=== PATIENT | male | born 1950 | race Hispanic/Latino ===

== ENCOUNTER 2016-10-26 10:41 | Inpatient (IN) | payer MEDICAID ==
[2016-10-26] MEDS ORDERED: Oxycodone/Acetaminophen 5/325 mg Tab PO STA ×2 (11:43→19:16)
--- NOTE | 2016-10-26 11:46 | ED PDOC ---
Upper Extremity Pain/Injury Time Seen by Provider: 10/26/16 11:24 Chief Complaint (Nursing): Upper Extremity Problem/Injury Chief Complaint (Provider): Upper back pain History Per: Patient Additional Complaint(s): 66 yo male, denies any PMH, presents to ED with c.o pain to right shoulder blade that radiates to right chest for 6 months. states he uses lidocaine patches with no relief. Pt reports that his PMD gave him an rx for MRI of shoulder back in September; however, Pt did not have it done thus far. PMD: Dr. Wynne Past Medical History Reviewed: Nursing Documentation, Vital Signs Vital Signs: Last Vital Signs Temp 97.9 F 10/26/16 11:21 Pulse 88 10/26/16 11:21 Resp 21 10/26/16 11:21 BP 126/80 10/26/16 11:21 Pulse Ox 100 10/26/16 11:21 - Medical History PMH: No Chronic Diseases - Family History Family History: States: No Known Family Hx - Living Arrangements Living Arrangements: With Family - Social History Current smoker - smoking cessation education provided: Yes Alcohol: Social Drugs: Denies - Home Medications Home Medications: Ambulatory Orders Medication Instructions Recorded Alprazolam [Xanax] 2 mg PO TID PRN 10/26/16 Oxycodone HCl/Acetaminophen 1 tab PO Q6H PRN 10/26/16 [Percocet 10-325 mg Tablet] - Allergies Allergies/Adverse Reactions: Allergies Allergy/AdvReac Type Severity Reaction Status Date / Time No Known Allergies Allergy Verified 10/26/16 11:23 Physical Exam - Reviewed Nursing Documentation Reviewed: Yes Vital Signs Reviewed: Yes - Physical Exam Appears: Positive for: Well, Non-toxic, No Acute Distress Head Exam: Positive for: ATRAUMATIC, NORMAL INSPECTION, NORMOCEPHALIC Skin: Positive for: Normal Color, Warm, DRY Eye Exam: Positive for: EOMI, Normal appearance, PERRL ENT: Positive for: Normal ENT Inspection Neck: Positive for: Normal, Painless ROM Cardiovascular/Chest: Positive for: Regular Rate, Rhythm, Gallop Respiratory: Positive for: Decreased Breath Sounds (RUL), Other (tenderness over right scapula, no edema, no ecchymosis or edema). Negative for: Accessory Muscle Use, Crackles, Rales, Rhonchi Gastrointestinal/Abdominal: Positive for: Normal Exam, Bowel Sounds, Soft Back: Positive for: Normal Inspection Extremity: Positive for: Normal ROM, Tenderness (over right scapula) Neurologic/Psych: Positive for: Alert, Oriented - Laboratory Results Result Diagrams: 10/26/16 14:30 10/26/16 13:49 - ECG O2 Sat by Pulse Oximetry: 100 Medical Decision Making Medical Decision Making: Shoulder XR: NAD, as read by CLEMENTE CXR: Large mass noted to RUL, as read by CLEMENTE Pt educated on concerning findings and likely indication and demonstrated full understanding. Agred wo further workup and admission at this time. IV access established and CT scan of Chest ordered. CT IMPRESSION: Large tumor mass right upper lobe 6 x 8 cm. Locally invasive including Direct extension into the mediastinum. Additional mediastinal and right hilar lymph nodes identified. Enlarged left adrenal gland suspicious for metastatic disease. Pt educated on results and demonstrated full understanding. Pt's PMD is Dr. Wynne. Family Practice Resident contacted and case discussed. Arrangements made for admission Disposition - Clinical Impression Clinical Impression: Mass of right lung, Broken shoulder - Patient ED Disposition Is Patient to be Admitted: Yes - Disposition Disposition Time: 16:00 Condition: STABLE - POA Present On Arrival: None
[2016-10-26] MEDS ORDERED: Oxycodone/Acetaminophen 5/325 mg Tab ONE ×2 (12:02→20:13)
[2016-10-26] MEDS ORDERED: Iohexol 300 100 ML IJ ONE (13:56)
[2016-10-26] MEDS ORDERED: Sodium Chloride 0.9% 50 ML IV ONE (13:57)
[2016-10-26 14:16] LABS: BASO % 0.3 % (0.0-2.0); EOS # 0.1 K/uL (0.0-0.7); EOS % 0.9 % (0.0-4.0); HEMATOCRIT 41.8 % (35.0-51.0); LYMPH % 14.1 % (20.0-40.0); MEAN CELL VOLUME 106.5 fl (80.0-94.0); MEAN CORPUSCULAR HEMOGLOBIN 36.9 pg (27.0-31.0); MEAN CORPUSCULAR HGB CONC 34.7 g/dL (33.0-37.0); MONO # 0.6 K/uL (0.0-0.8); MONO % 7.7 % (0.0-10.0); NEUT # 5.5 K/uL (1.8-7.0); WHITE BLOOD COUNT 7.1 K/uL (4.8-10.8)
--- NOTE | 2016-10-26 14:17 | RAD ---
PROCEDURE: Radiographs of the Right Shoulder HISTORY: pain, atruamtic COMPARISON: No prior. FINDINGS: BONES: Normal. No fracture. JOINTS: Preserved glenohumeral relationship, acromioclavicular degenerative change: Mild. SOFT TISSUES: Normal. OTHER FINDINGS: Incompletely visualize right upper lobe mass. IMPRESSION: No significant or acute osseous findings to account for/ related to the clinical presentation.
--- NOTE | 2016-10-26 14:17 | RAD ---
HISTORY: Chest pain. COMPARISON: No prior. TECHNIQUE: Chest PA and lateral FINDINGS: LUNGS: Large right upper lobe mass. Findings of either direct extension into the peritracheal region or adjacent mediastinal lymphadenopathy. The mass measures 8.6 x 9 cm. PLEURA: No significant pleural effusion identified. No pneumothorax apparent. CARDIOVASCULAR: Normal. OSSEOUS STRUCTURES: No significant abnormalities. VISUALIZED UPPER ABDOMEN: Normal. OTHER FINDINGS: None. IMPRESSION: Large right upper lobe mass described in greater detail above. Neoplasm is likely.
[2016-10-26 14:37] LABS: ALB/GLOB RATIO 1.4 (1.0-2.1); ALKALINE PHOSPHATASE 58 U/L (38-126); ALT/SGPT 37 U/L (21-72); AST/SGOT 44 U/L (17-59); BILIRUBIN,TOTAL 0.5 mg/dl (0.2-1.3); BLOOD UREA NITROGEN 10 mg/dl (9-20); CARBON DIOXIDE 21 mmol/L (22-30); CHLORIDE 106 mmol/L (98-107); GFR AFRICAN-AMERICAN > 60; GLUCOSE,RANDOM 90 mg/dL (75-110); POTASSIUM 4.2 MMOL/L (3.6-5.0); SODIUM 137 mmol/l (132-148); TOTAL PROTEIN 7.1 G/DL (6.3-8.2)
--- NOTE | 2016-10-26 15:48 | CT ---
PROCEDURE: CT Chest with contrast HISTORY: RUL mass on XR COMPARISON: October 26, 2016. Single-view chest TECHNIQUE: Contiguous axial images were obtained through the chest with intravenous contrast enhancement. Sagittal and coronal reconstructions were performed. IV contrast: 95 cc Omnipaque 300. Radiation dose (DLP): 803.22 mGy-cm. This CT exam was performed using one or more of the following dose reduction techniques: Automated exposure control, adjustment of the mA and/or kV according to patient size, and/or use of iterative reconstruction technique. FINDINGS: LUNGS: Irregular partially necrotic mass posterior segment right upper lobe measuring 6 x 8 cm. The mass displays contiguity with the pleura. No adjacent osseous invasion. Direct extension into the mediastinum and hilum. Multiple azygos lymph nodes identified the largest 3.8 cm. Local invasion of the right main pulmonary artery. No additional suspicious pulmonary nodules or masses. Postobstructive pneumonitis affecting the right upper lobe. Basilar atelectasis. MEDIASTINUM: Unremarkable thoracic aorta. No aneurysm or dissection. Normal sized heart. Main pulmonary artery unremarkable. No vascular congestion. Superior middle mediastinal, peritracheal, azygos adenopathy. Necrotic right hilar lymph nodes identified. The largest lymph node 3.8 cm. PLEURA: No pleural fluid. No pneumothorax. BONES: No fracture. No destructive lesion. UPPER ABDOMEN: Enlarged left adrenal gland 2.6 x 3.3 cm consistent with metastatic disease. Radiopaque foreign body within the liver, dome of the liver. No suspicious hepatic masses identified. OTHER FINDINGS: None. IMPRESSION: Large tumor mass right upper lobe 6 x 8 cm. Locally invasive including Direct extension into the mediastinum. Additional mediastinal and right hilar lymph nodes identified. Enlarged left adrenal gland suspicious for metastatic disease.
--- NOTE | 2016-10-26 19:42 | CP.PCM.HP ---
History of Present Illness - History of Present Illness History of Present Illness: 66 yo male with history of Sciatica came in because of persistent progressive, right scapular pain since [address] Huff a month ago and was advised to get an MRI. Patient however never went. Pt denied SOB, coughing or chest pain. Also denied fever or chills. Present on Admission - Present on Admission Any Indicators Present on Admission: No History of DVT/PE: No History of Uncontrolled Diabetes: No Urinary Catheter: No Decubitus Ulcer Present: No Review of Systems - Review of Systems All systems: reviewed and no additional remarkable complaints except (aside from those mentioned above, 12 point system review were negative by me) Past Patient History - Infectious Disease Hx of Infectious Diseases: None - Past Medical History & Family History Pertinent Family History: Mother from sepsis secondary to cholecystitis, Brother from Hodgkin's Lymphoma - Past Social History Smoking Status: Heavy Smoker > 10 Cigarettes Daily Chewing Tobacco Use: No Cigar Use: No Alcohol: > 2 Drinks/Day Drugs: Denies Home Situation {Lives}: With Family - CARDIAC Hx Cardiac Disorders: No - PULMONARY Hx Respiratory Disorders: No - NEUROLOGICAL Hx Neurological Disorder: No - HEENT Hx HEENT Problems: No - RENAL Hx Chronic Kidney Disease: No - ENDOCRINE/METABOLIC Hx Endocrine Disorders: No - HEMATOLOGICAL/ONCOLOGICAL Hx Blood Disorders: No - INTEGUMENTARY Hx Dermatological Problems: No - MUSCULOSKELETAL/RHEUMATOLOGICAL Hx Musculoskeletal Disorders: Yes Other/Comment: Sciatica for over 30 yrs with left sided radiculopathy - GASTROINTESTINAL Hx Gastrointestinal Disorders: No - GENITOURINARY/GYNECOLOGICAL Hx Genitourinary Disorders: No - PSYCHIATRIC Hx Psychophysiologic Disorder: No Hx Substance Use: No - SURGICAL HISTORY Hx Surgeries: Yes Other/Comment: benign tumor excision on left side of the neck in 1970 - ANESTHESIA Hx Anesthesia: Yes Hx Anesthesia Reactions: No Meds Allergies/Adverse Reactions: Allergies Allergy/AdvReac Type Severity Reaction Status Date / Time No Known Allergies Allergy Verified 10/26/16 11:23 Physical Exam - Constitutional Appears: No Acute Distress - Head Exam Head Exam: ATRAUMATIC - Eye Exam Eye Exam: Normal appearance - ENT Exam ENT Exam: Mucous Membranes Moist - Neck Exam Neck exam: Negative for: Lymphadenopathy, Meningismus - Respiratory Exam Respiratory Exam: absent: Rhonchi, Wheezes, Respiratory Distress - Cardiovascular Exam Cardiovascular Exam: REGULAR RHYTHM, +S1, +S2 - GI/Abdominal Exam GI & Abdominal Exam: Soft. absent: Tenderness - Rectal Exam Rectal Exam: Deferred - Extremities Exam Extremities exam: Positive for: full ROM (no limitation of movement on both shoulders) - Back Exam Back exam: absent: tenderness - Neurological Exam Neurological exam: Alert, Oriented x3 - Psychiatric Exam Psychiatric exam: Normal Affect - Skin Skin Exam: Dry, Intact Results - Vital Signs Recent Vital Signs: Last Vital Signs Temp 97.9 F 10/26/16 11:21 Pulse 88 10/26/16 11:21 Resp 21 10/26/16 11:21 BP 126/80 10/26/16 11:21 Pulse Ox 100 10/26/16 17:05 - Labs Result Diagrams: 10/26/16 14:30 10/26/16 13:49 Labs: Laboratory Results - last 24 hr 10/26/16 19:15 Alcohol, Quantitative 68 H Assessment & Plan (1) Mass of right lung Status: Acute Comment: admit to med/surg. pulmonary consult with Dr Victor. oncology consult with Dr Law. Percocet 5/325 PO q 4hrs prn. will hold anticoagulant or antiplatelet since patient might be scheduled for lung biopsy
[2016-10-26] MEDS ORDERED: Oxycodone/Acetaminophen 5/325 mg Tab PO PRN (19:58)
[2016-10-26 23:00] VITALS: BP 126/84; PULSE 99; RESP 20; TEMP 98.7; O2SAT 96
[2016-10-27] MEDS ORDERED: Pneumococcal 23-Valent Vaccine IM ONE (09:00)
[2016-10-27] MEDS ORDERED: Pantoprazole 40 mg EC Tab PO SCH (09:00)
--- NOTE | 2016-10-27 09:50 | CON ---
DATE: 10/27/2016 The patient is a young gentleman who was referred by the hospitalist for evaluation of right upper lo be mass. He is a 66-year-old chronic cigarette-smoker and drinks alcohol heavily, follows up with Dr Rakel Hernandez as an outpatient, and has been having right shoulder and right posterior chest wall pain fo r the past several months. He indicates that symptoms started after he fell off a roof several month s ago, but did not seek help until recently. He indicated that Dr. Hernandez sent him for an x-ray, an d the x-ray was remarkable for large right upper lobe mass, likely representing malignancy. PAST MEDICAL HISTORY: He denies any prior medical problems. FAMILY HISTORY: Nonrevealing. SOCIAL HISTORY: Socially, he smokes 1-2 packs of cigarettes daily and drinks alcohol heavily. Does not use drugs. REVIEW OF SYSTEMS: Essentially unremarkable except for right shoulder pain. PHYSICAL EXAMINATION: VITAL SIGNS: Stable. MOUTH: Shows fair hygiene. LUNGS: Fair aeration. Clear. HEART: Regular. No murmurs or gallops. ABDOMEN: Soft, nontender. No organomegaly. EXTREMITIES: Shows no edema or cyanosis. CENTRAL NERVOUS SYSTEM: Grossly intact. Official report of chest x-ray is pending. Official report of CAT scan also pending, but both indicate large right upper lobe mass, possibly kirsten plastic. IMPRESSION: Large right upper lobe mass, rule out malignancy. One doubts ____ etiology ____. Tiffany ferrari has to be ruled out. The suggestion at present is CT-guided needle biopsy of the lung mass for definitive diagnosis. Anal gesics for pain. We will continue to follow with you. Bronchoscopy might be indicated if CT-guided needle biopsy is n onrevealing. Lucien Victor MD cc: 62 TT: 10/27/2016 09:50:14 Confirmation # [id number] Dictation # [id number] raffaele
--- NOTE | 2016-11-04 07:47 | CARD ---
APPROVED REPORT EKG Measurement Heart [id number] <Conclusion> Normal sinus rhythm Right bundle branch block Left anterior fascicular block Bifascicular block Abnormal ECG
== END 2016-10-27 19:23 | disposition home or self-care (01) | DRG 100 ==
LOC: H.ER 10:41 → H.ERHOLD 18:19 → H.MEDSURG1 20:44
DX: R91.8 Other nonspecific abnormal finding of lung field (principal); F17.200 Nicotine dependence, unspecified, uncomplicated; M54.30 Sciatica, unspecified side

== ENCOUNTER 2016-11-01 09:23 | Day surgery (SDC) | payer MEDICAID ==
[2016-11-01 09:39] VITALS: BMI 29.3
[2016-11-01 10:31] LABS: PARTIAL THROMBOPLASTIN TIME 25.4 SECONDS (23.3-32.5)
[2016-11-01] MEDS ORDERED: Lidocaine 1% Inj (20ml) ONE ×2 (11:17→14:02)
[2016-11-01] MEDS ORDERED: Midazolam 2 MG/2 ML VIAL ONE ×2 (11:18→11:42)
[2016-11-01] MEDS ORDERED: Propofol 10 mg/ml Inj (20 ML) ONE (11:28)
--- NOTE | 2016-11-01 11:28 | CP.SDSHP ---
Same Day Surgery H & P - Allergies Allergies: Allergies No Known Allergies Allergy (Verified 10/26/16 11:23) - Physical Exam Vital Signs: Vital Signs 11/01/16 11/01/16 10:14 10:19 Temperature 98.2 F Pulse Rate 92 H 92 H Respiratory 18 Rate Blood Pressure 139/97 H O2 Sat by Pulse 96 Oximetry Short Stay Discharge - Short Stay Discharge Admitting Diagnosis/Reason for Visit: RT UPPER LOBE MASS Progress Note/Discharge Note with Instructions: S/P Right lung biopsy. There were no immediate complications.
--- NOTE | 2016-11-01 11:28 | CP.SDSHP ---
Same Day Surgery H & P - History Proposed Procedure: US guided right lung mass biopsy Pre-Op Diagnosis: Right lung mass - Allergies Allergies: Allergies No Known Allergies Allergy (Verified 10/26/16 11:23) - Physical Exam Vital Signs: Vital Signs 11/01/16 11/01/16 10:14 10:19 Temperature 98.2 F Pulse Rate 92 H 92 H Respiratory 18 Rate Blood Pressure 139/97 H O2 Sat by Pulse 96 Oximetry Mental Status: Alert & Oriented x3 Neuro: WNL Heart: WNL Lungs: WNL - Impression Impression: Pt with a large right upper posterior lung mass. Plan ultrasound guided core biopsy. Informed consent obtained and risk of pneumothorax discussed with the patient. Pt. Evaluated Today:Candidate for Anesthesia & Procedure: Yes (ASA 3 Malampati 3) - Date & Time Date: 11/01/16 Time: 11:15 Short Stay Discharge - Short Stay Discharge Admitting Diagnosis/Reason for Visit: RT UPPER LOBE MASS Disposition: HOME/ ROUTINE
--- NOTE | 2016-11-01 11:29 | PCM.SURG1 ---
Surgeon's Initial Post Op Note - Surgeon's Notes Surgeon: Juarez Hatch MD Milk Route Deliverer: NONE Type of Anesthesia: IV Sedation Pre-Operative Diagnosis: Right lung mass Operative Findings: Large right upper lobe lung mass on US Post-Operative Diagnosis: Right lung mass Operation Performed: US guided right lung mass biopsy Specimen/Specimens Removed: 20 g core x 3 Estimated Blood Loss: EBL {In ML}: 0 Blood Products Given: N/A Drains Used: No Drains Post-Op Condition: Good Date of Surgery/Procedure: 11/01/16 Time of Surgery/Procedure: 12:00
[2016-11-01] MEDS ORDERED: Labetalol 5mg/ml (4ml) ONE (11:42)
[2016-11-01] MEDS ORDERED: Povidone Iodine Topical 10% Sol ONE (11:46)
[2016-11-01] MEDS ORDERED: Lactated Ringer's 1,000 ML IV ONE ×2 (12:10→15:10)
[2016-11-01] MEDS ORDERED: Lactated Ringer's 1,000 ML IV SCH ×2 (12:12→14:42)
[2016-11-01] MEDS: HYDROmorphone 0.5 mg/0.5 ml ISec IVP PRN ×2 (12:15→12:40)
[2016-11-01] MEDS ORDERED: Sodium Chloride 0.45% 1,000 ML IV SCH (12:15)
[2016-11-01] MEDS ORDERED: HYDROmorphone 0.5 mg/0.5 ml ISec ONE (12:32)
[2016-11-01] MEDS ORDERED: Midazolam 5 MG/ML ONE (14:05)
--- NOTE | 2016-11-01 14:18 | RAD ---
HISTORY: Status post right lung mass biopsy AP portable views of the chest performed. . COMPARISON: Comparison made with chest and CT chest and chest radiographs both dated 10/26/2016. FINDINGS: LUNGS: Large right upper lobe mass contiguous with the right aspect of the mediastinum again noted. PLEURA: No significant pleural effusion identified, no pneumothorax apparent. CARDIOVASCULAR: Normal. OSSEOUS STRUCTURES: No significant abnormalities. VISUALIZED UPPER ABDOMEN: Normal. OTHER FINDINGS: None. IMPRESSION: Large right upper lobe mass contiguous with the right aspect of the mediastinum. No definitive pneumothorax seen. . .
[2016-11-01 16:01] VITALS: O2SAT 97
[2016-11-01 16:57] VITALS: TEMP 98.5
--- NOTE | 2016-11-01 19:29 | PCM.RRTMUL ---
[employer] Nurse Assessment - Vital Signs Blood Pressure:: 147/106 Pulse Rate:: 71 Respiratory Rate:: 18 Temperature:: 98.5 F I.Reason for [employer] - A) Acute Change in Patient: (Select all that apply): Acute change in mental status (Patient while waiting to be discharged from same surgery suddenly noted by to be drooling, diaphoretic and very pale. He denied chest pain or SOB but appeared to be very restless) Subjective: Patient while waiting to be discharged after having a CT guided biopsy of the right upper lung mass was found by to be drooling, diaphoretic, lethargic and very pale. The felt that he had a seizure. The also claimed that he appeared restless prior to the event but denied chest pain or SOB. [employer] was called and when the team arrived patient was noted to be responsive but lethargic. He was cold and clammy with a BP of 138/80, HR 100, RR 20. Patient was still responsive and denied having chest pain or SOB. O2 sat on 100% FIO2 was 96. Accuchek was 139. Patient was immediately brought down to ER for further evaluation and management but as soon as he arrived in the ER room patient became unresponsive and coded. - A) Initial Vital Signs: Blood Pressure: 138/80 Pulse Rate: 100 Respiratory Rate: 22 O2 Sat by Pulse Oximetry: 96 Finger Stick Blood Glucose: 139 - B) Neurological Status (Select all that apply): Lethargic - C) Respiratory Oxygen Delivery Method: Non Rebreather @% - Constitutional Appears: Other (cold, clammy, pale and lethargic) - Head Head Exam: ATRAUMATIC - Eyes Additional Comments: barely reactive to light - Respiratory Exam Respiratory Exam: Decreased Breath Sounds. absent: Wheezes - Cardiovascular Exam Cardiovascular Exam: Tachycardia - GI/Abdominal Exam GI & Abdominal Exam: Soft. absent: Tenderness - Neurological Exam Neurological Exam: Altered (lethargic) Plan - B. Assessment of Findings&Treatment Plan The [employer] in same day surgery ended up in the ER when patient became unresponsive and was coded.
[2016-11-01 19:33] VITALS: PULSE 100
[2016-11-01 19:51] VITALS: BP 138/80
[2016-11-01 19:54] VITALS: RESP 22
--- NOTE | 2016-11-02 10:42 | CT ---
PROCEDURE: Date of procedure: 11/01/2016 Procedure: 1. CT-guided right lung mass biopsy, CPT [address] Guidance for biopsy, [address] Medications: The patient was sedated by anesthesiologist along with physiologic monitoring. 6cc 1% Lidocaine. HISTORY: Right upper lobe lung mass TECHNIQUE: Following informed consent and procedure time out, the patient was placed prone on the CT table and noncontrast CT scan was performed. Noncontrast CT scan confirmed the presence of a 7.8 cm x 5.5 cm mass in the posterior right upper lobe. A skin localizer was placed on the patient's RIGHT back and a repeat CT scan was performed. The skin was marked, prepped, and draped in the usual sterile fashion. After the skin was anesthetized with 6 cc 1% lidocaine and the patient sedated by the anesthesiologist, a 20 gauge core needle was advanced percutaneously under direct CT guidance into the mass. Upon confirmation of needle position, four 20-gauge core specimens were obtained and sent for routine pathology. The needle was removed and a xeroform dressing was applied. A post biopsy CT scan showed no pneumothorax or hematoma. Small amount of air was present within the mass IMPRESSION: CT guided core biopsy right lung mass. There was no pneumothorax or hematoma from the lung mass biopsy.
--- NOTE | 2016-11-02 12:07 | RAD ---
PROCEDURE: CHEST RADIOGRAPH, 1 VIEW HISTORY: dyspnea COMPARISON: Comparison chest 11/01/2016 at 12:15 hours FINDINGS: LUNGS: Interval placement ETT, the tip of which lies approximately 4.77 cm above thao. Re- demonstrated is a large right upper lobe mass contiguous with the of this right superomedial aspect of the mediastinum. Mild left basilar atelectasis. PLEURA: No pneumothorax or pleural fluid seen. CARDIOVASCULAR: Normal. OSSEOUS STRUCTURES: No significant abnormalities. VISUALIZED UPPER ABDOMEN: Normal. OTHER FINDINGS: None. IMPRESSION: Interval placement ETT as above Mild right basilar atelectasis. No change large right upper lobe mass.
== END 2016-11-01 18:10 | disposition still patient (30) ==
LOC: H.OPSURG 09:23
DX: C34.91 Malignant neoplasm of unspecified part of right bronchus or lung (principal); R91.8 Other nonspecific abnormal finding of lung field

== ENCOUNTER 2016-11-01 18:11 | Emergency (ER) | payer MEDICAID ==
[2016-11-01 18:11] VITALS: BMI 29.3
--- NOTE | 2016-11-01 19:09 | ED PDOC ---
HPI: Cardiac Arrest Time Seen by Provider: 11/01/16 18:11 Chief Complaint (Nursing): Cardiac Arrest Chief Complaint (Provider): Cardiac Arrest History Per: Other (Doctor from same day surgery) Reason For Code Blue: Respiratory Arrest Circumstances: Other (Brought to the ER after biopsy in same day surgery room) CPR Initiated Prior To MD Arrival?: No Down-Time Before ACLS: Mins Treatment Initiated Prior To MD Arrival: IVF, IV Access Additional Complaint(s): 66 y/o male presented to the emergency department after increase diaphoresis, back pain, and decrease responsiveness after getting a surgical procedure, biopsy, in the same day surgery department prior to arrival to the ER. Associated with possible foaming from the mouth. Patient became more and more unresponsive while in transit to the ER. As per history from , after biopsy was performed patient was restless. Pt. was given clonodine and toradol for bp tx and pain control. Was in same day surgery recovery since 12pm. Unresponsiveness started approx 30 min prior to ER arrival. - Initial Findings Mentation: Unresponsive Respirations: None (Assisted) Pulse: None Rhythm: PEA Past Medical History Reviewed: Historical Data, Nursing Documentation, Vital Signs - Medical History PMH: Anxiety Denies: HIV, Chronic Kidney Disease Other PMH: lung tumor - Surgical History Other surgeries: Biopsy of the right upper lobe - Family History Family History: States: Unknown Family Hx - Social History Current smoker - smoking cessation education provided: Yes (Heavy smoker > 10 Cigarettes Daily) Alcohol: Other (Yes: reports drinking 5 beers a day) - Immunization History Hx Tetanus Toxoid Vaccination: No Hx Influenza Vaccination: No Hx Pneumococcal Vaccination: No - Home Medications Home Medications: Ambulatory Orders Medication Instructions Recorded Alprazolam [Xanax] 2 mg PO TID PRN 10/26/16 Oxycodone HCl/Acetaminophen 1 tab PO Q6H PRN 10/26/16 [Percocet 10-325 mg Tablet] Acetaminophen [Tylenol Arthritis] 650 mg PO Q6 11/01/16 Aspirin/Acetaminophen/Caffeine 1 each PO QID 11/01/16 [Excedrin Extra Strength Caplet] oxyCODONE/Acetaminophen [Percocet 1 ea PO Q4 PRN #20 tab 11/01/16 5/325 mg Tab] - Allergies Allergies/Adverse Reactions: Allergies Allergy/AdvReac Type Severity Reaction Status Date / Time No Known Allergies Allergy Verified 10/26/16 11:23 Review of Systems Review Of Systems: ROS cannot be obtained secondary to pt's inabilty to answer questions. Physical Exam - Reviewed Nursing Documentation Reviewed: Yes Vital Signs Reviewed: Yes - Physical Exam Appears: Positive for: In Acute Distress Head Exam: Positive for: ATRAUMATIC, NORMAL INSPECTION, NORMOCEPHALIC Skin: Positive for: Diaphoresis Eye Exam: Positive for: Other (Pupils dilated b/l) Neck: Positive for: Trachea Midline Cardiovascular/Chest: Positive for: Other (no heart rate). Negative for: Edema Respiratory: Positive for: Decreased Breath Sounds (present only with ambubag) Gastrointestinal/Abdominal: Positive for: Soft. Negative for: Distended Back: Negative for: Normal Inspection (surgical bandage on upper back.) Extremity: Positive for: Other (no movement of extremities). Negative for: Pedal Edema Neurologic/Psych: Positive for: Other (unresponsive). Negative for: Alert, Oriented - Critical Care Total Time (In Min): 30 Documented Critical Care: Time excludes all time spent performint seperately billable procedures Medical Decision Making Medical Decision Making: Time: 18:00 Initial plan: --Patient arrived to the ER from the same day surgery department becoming more and more unresponsive. --Was given Toradol earlier for pain and Clonidine for blood pressure. --Patient become very diaphoretic associated with frothing prior to arrival in ED. Time: 18:05 --Pupils were dilated. Patient was intubated with ambubag for ventilation. Time: 18:06 --Check pulse: None Time: 18:07 --ET 7.5 2 administered Time: 18:08 --Bagging fine --1st EPI was given with broad on the back --CPR Time: 18:10 --2nd EPI was given. --CPR Time: 18:11 --Cardiac heart rate with a PEA rhythm --CPR Time: 18:15 --Chest X-ray was performed in room; no pneumothorax. Time: 18:18 --Central Line kit was obtained. -CPR Time: 18:20 --3rd EPI was given --1st Calcium gluconate --1st and 2nd Sodium bicarbonate given --CPR Time: 18:22 --4th EPI was given --Pulse Check: None --CPR Time: 18:24 --5th EPI was given --CPR Time: 18:26 --6th EPI was given --Triple Lumen --CPR Time: 18:32 --Clear Shock Time: 18:33 --7th EPI given Time: 18:35 --Ultrasound of the heart was performed --Central Line Time: 18:37 --8th EPI was given --CPR Time: 18:38 --Check pulse: None Time: 18:40 --9th EPI given --2nd Calcium gluconate 1gm --3rd Sodium bicarbonate given --CPR Time: 18:44 --Continue CPR Time: 18:48 --Check pulse: None (Flat Line) --Check cardiac activity: None --Pupils fixed and dilated Time: 18:49 No one else had any further recommendations for treatment. Pt. unresponsive and with asytole rhythm. Time of called. Time: 1949 Nurse spoke with ME. Certificate filled accordingly. Clinical Impression: Respiratory failure Scribe Attestation: Documented by Lien Dunbar, acting as a scribe for Quentin Ng MD. Provider Scribe Attestation: All medical record entries made by the Scribe were at my direction and personally dictated by me. I have reviewed the chart and agree that the record accurately reflects my personal performance of the history, physical exam, medical decision making, and the department course for this patient. I have also personally directed, reviewed, and agree with the discharge instructions and disposition. Procedures - Central Line Central Line Lumen: triple Central Line Procedure: betadine prep Central Line Postion: femoral (R) Complications: none Central Line Post Position: sutured, good blood return - Intubation Time of Intubation: 18:10 Intubation Method: orotracheal Tube Size (cm): 7.5 Breath Sounds after Intubation: equal Intubation Complications: no complications Post Intubation Xray: Yes Disposition - Clinical Impression Clinical Impression: Cardiac arrest, Respiratory failure - Patient ED Disposition Is Patient to be Admitted: No - Disposition Disposition Time: 18:49 Condition:
== END 2016-11-01 23:21 ==
LOC: H.ER 18:11
DX: I46.9 Cardiac arrest, cause unspecified (principal); R61 Generalized hyperhidrosis; J96.90 Respiratory failure, unspecified, unspecified whether with hypoxia or hypercapnia; F17.210 Nicotine dependence, cigarettes, uncomplicated